=== PATIENT | female | born 1940 | race Caucasian/White ===

== ENCOUNTER 2021-03-22 22:19 | Emergency (ER) | payer OTHER ==
[~2021-03-22] VITALS: Ht 170.2 cm; Wt 47.6 kg
[2021-03-22] MEDS ORDERED: hydrALAZINE HCL 10 MG TAB PO ONE (22:45)
[2021-03-22 23:20] VITALS: BP 129/81
== END 2021-03-23 00:05 | disposition home or self-care (01) ==
LOC: ER 22:19 → EDBD 22:19 → ER 03-23 00:05
DX: I10 Essential (primary) hypertension (principal); Z88.0 Allergy status to penicillin; Z88.5 Allergy status to narcotic agent
CPT/HCPCS: 93005